=== PATIENT | male | born 1950 | race Hispanic/Latino ===

== ENCOUNTER 2018-09-01 08:16 | Day surgery (SDC) | payer OTHER ==
--- OUTSIDE RECORDS SUMMARY | 2018-09-01 08:21 | XMS REPORT ---
:1950 [facility] Address [address] [place] [address] Dr. Gordillo [address] [place] [id number] Care Team Providers Name Role Phone Unavailable Unavailable Unavailable Problems This patient has no known problems. Allergies, Adverse Reactions, Alerts This patient has no known allergies or adverse reactions. Medications This patient has no known medications.
[2018-09-01] MEDS ORDERED: CEFAZOLIN 1GM (PREMIX IV) 1 GM/50 ML BAG ONE (09:05)
[2018-09-01] MEDS ORDERED: Ringers Lactate 1,000 ML IV ONE (09:05)
[2018-09-01] MEDS ORDERED: PROPOFOL 200 MG/20 ML VIAL IV ONE (09:53)
[2018-09-01] MEDS ORDERED: ONDANSETRON 4 MG/2 ML VIAL ONE (09:54)
[2018-09-01] MEDS ORDERED: FENTANYL CITR 100 MCG/2 ML ONE (09:54)
[2018-09-01] MEDS ORDERED: MIDAZOLAM HCL 2 MG/2 ML INJ ONE (09:54)
[2018-09-01] MEDS ORDERED: LIDOCAINE 2% MPF 5 ML VIAL ONE (09:54)
[2018-09-01] MEDS ORDERED: ROCURONIUM 50 MG/5 ML VIAL IV ONE (09:56)
[2018-09-01] MEDS ORDERED: BUPIVACA 0.25%/EPI 0.0005% MDV 50 ML VIAL ONE (10:15)
[2018-09-01] MEDS ORDERED: EPHEDRINE SULF 50 MG/10 ML SYR ONE (10:34)
--- NOTE | 2018-09-01 12:10 | P.OP ---
Preoperative diagnosis: Recurrent Right Inguinal Hernia Postoperative diagnosis: Recurrent Right Inguinal Hernia Primary procedure: Open Repair of Recurrent Right Inguinal Hernia with Mesh Anesthesia: GETA + Local Estimated blood loss: <10cc Specimen: Hernia Sac Findings: Indirect hernia medial to cord structures, prior mesh pushed laterally Complications: None Implants: Large hernia plug and patch Transferred to: Recovery Room Condition: Good
[2018-09-01] MEDS ORDERED: GLYCOPYRROLATE 0.2 MG/ML SYR ONE (12:18)
[2018-09-01] MEDS: HYDROMORPHONE HCL 1 MG/ML INJ ONE ×4 (12:35→12:50)
[2018-09-01] MEDS ORDERED: HYDROCODONE/APAP 5/325 MG TAB ONE (17:26)
--- NOTE | 2018-09-01 23:31 | OP ---
Date of Procedure: 09/01/2018 Surgeon: Roverto Aguiar MD, Preoperative Diagnosis: Recurrent right inguinal hernia. Postoperative Diagnosis: Recurrent right inguinal hernia. Procedure Performed: Open repair of recurrent right inguinal hernia with plug and patch hernia repai r system. Anesthesia: General endotracheal plus local. Estimated Blood Loss: Less than 10 cc. Specimen: Hernia sac. Findings: There was an indirect hernia medial to the cord structures pushed, which had pushed the pr ior mesh laterally. Implants: A large Bard PerFix hernia plug and patch system. Complication: None. Disposition: Transferred to recovery room in good condition. Procedure In Detail: After informed consent was obtained, the patient was brought to the operating r oom, prepped and draped in the usual sterile fashion. After adequate anesthesia was achieved, an are a of the right groin was anesthetized with 0.25% Marcaine, sharply incised, and dissection was contin ued down through the subcutaneous tissues, through Camper fascia and Indigo fascia, to the level of t he spermatic cord and structures. This was encircled at this time and dissected down to its entirety . A hernia sac was noted to be emanating from the medial aspect. There was a hernia patch at this a kim. However, it appeared to be pushed laterally from its normal anatomic position. Dissection was continued circumferentially around this area, protecting all vital structures. After the spermatic c ord and structures were completely encircled with a Jean drain, I continued to dissect the hernia sac off the spermatic cord and structures. The testicle was distracted inferiorly to ensure there wa s minimal tension on the spermatic cord and structures. After the hernia sac was dissected free of t he spermatic cord structures, the sac was opened and inspected in its entirety. It was then ligated down to the level of the abdominal wall, and the large Bard PerFix hernia plug and patch system was b rought in, hydrated appropriately, and the patch was left on the back table and the plug system was b rought onto the field. This was secured in a parachute fashion into the medial aspect of the hernia defect with good approximation of the tissues, and it was secured using 4 interrupted 0 PDS sutures c ircumferentially around without pushing undue tension into this area with good approximation, and it was lying flat at this time. I then sized the large hernia patch system in a Bacilio tension-fr ee manner. I placed it over the hernia defect and under the spermatic cord and structures to reconst itute the deep ring. It was secured to the pubic tubercle on the medial aspect and on the shelving e dge of Luis and Poupart ligaments with small interrupted 2-0 PDS suture circumferentially around. The area was copiously irrigated multiple times until completely clean and dried out at this time. T he Camper fascia and Indigo fascia were closed en bloc over the top as the external oblique aponeuros is was found to be quite thin and friable and had very minimal strength to it. It was closed en bloc with the above-stated structures. After this was performed, the dermal layer was closed with interr upted 3-0 Vicryl sutures, and skin was closed with a 4-0 Monocryl in a running fashion. Dermabond wa s placed overtop. The patient tolerated the procedure well without evidence of complication and lehman sferred to the PACU in good condition. All counts were correct at the end of the case. TERRENCE/DYANA Voice ID: [id number] Report ID: [id number]
== END 2018-09-01 17:30 | disposition home or self-care (01) ==
LOC: OR 08:16
PROVIDERS: ATTEND Surgery
PROC: 0YU50JZ Supplement Right Inguinal Region with Synthetic Substitute, Open Approach (ICD-10-PCS; principal; 2018-09-01 09:30)
DX: K40.91 Unilateral inguinal hernia, without obstruction or gangrene, recurrent (principal); I10 Essential (primary) hypertension; E78.5 Hyperlipidemia, unspecified; K21.9 Gastro-esophageal reflux disease without esophagitis
CPT/HCPCS: 49520; 88302; J0690; J1170 ×2; J2250; J2405; J2704; J3010

== ENCOUNTER 2022-12-28 06:52 | Day surgery (SDC) | payer OTHER ==
[2022-12-28] MEDS ORDERED: NA CHLORIDE 0.9% 1,000 ML ONE (07:29)
[2022-12-28] MEDS ORDERED: propofoL 200 MG/20 ML VIAL IV ONE (08:23)
[2022-12-28] MEDS ORDERED: LIDOCAINE 1% MPF 5 ML VIAL ONE (08:23)
[2022-12-28 09:13] VITALS: TEMP 97.2
[2022-12-28 10:44] VITALS: BP 168/91; O2SAT 98
== END 2022-12-28 09:50 | disposition home or self-care (01) ==
LOC: PRE 06:52 → OR 09:50
PROVIDERS: ATTEND Surgery
PROC: 0DBK8ZX Excision of Ascending Colon, Via Natural or Artificial Opening Endoscopic, Diagnostic (ICD-10-PCS; principal; 2022-12-28 08:30)
DX: R93.3 Abnormal findings on diagnostic imaging of other parts of digestive tract (principal); K57.30 Diverticulosis of large intestine without perforation or abscess without bleeding; K64.4 Residual hemorrhoidal skin tags; K64.8 Other hemorrhoids; K63.5 Polyp of colon
CPT/HCPCS: 82947; 88305; 45384; J2704; J2001; J7030

== ENCOUNTER 2023-02-15 08:30 | Day surgery (SDC) | payer OTHER ==
[2023-02-12 13:53] LABS: Absolute Lymphocytes (CBC) 1.8 K/uL (0.7-4.9); Hematocrit 49.4 % (39.6-49.0); Lymphocytes % 21.3 % (15.3-44.8); MCV 88.1 fL (80-100); MPV 8.3 fL (7.6-11.3)
--- NOTE | 2023-02-12 13:53 | RAD REPORT ---
EXAM DESCRIPTION: Mindy Zavala And Bethanie (2 Views)02/12/2023 1:38 pm CLINICAL HISTORY: Preop for hernia repair COMPARISON: None FINDINGS: Lungs are moderately hyperaerated The lungs appear clear of acute infiltrate. The heart is normal size IMPRESSION: No acute abnormalities displayed
[2023-02-12 14:07] LABS: Potassium 4.2 mEq/L (3.5-5.1)
[2023-02-15] MEDS ORDERED: NA CHLORIDE 0.9% 1,000 ML ONE ×2 (09:05→13:11)
[2023-02-15] MEDS: CEFAZOLIN SODIUM 1 GM/VIAL ONE ×2 (09:38→10:46)
[2023-02-15] MEDS ORDERED: BUPIVACAINE 0.5% PF 10 ML VIAL ONE (09:52)
[2023-02-15] MEDS ORDERED: LIDOCAINE 2% MPF 5 ML VIAL ONE (10:00)
[2023-02-15] MEDS ORDERED: ROCURONIUM 50 MG/5 ML VIAL IV ONE (10:00)
[2023-02-15] MEDS ORDERED: dexAMETHasone 4 MG/ML VIAL ONE (10:00)
[2023-02-15] MEDS ORDERED: FENTANYL CITR 100 MCG/2 ML ONE ×2 (10:00→11:52)
[2023-02-15] MEDS ORDERED: propofoL 200 MG/20 ML VIAL IV ONE (10:00)
[2023-02-15] MEDS ORDERED: KETOROLAC 30 MG/ML INJ ONE (10:00)
[2023-02-15] MEDS ORDERED: ONDANSETRON 4 MG/2 ML VIAL ONE (10:00)
[2023-02-15] MEDS ORDERED: LABETALOL 20 MG/4ML SYRINGE IV ONE (11:43)
[2023-02-15] MEDS ORDERED: BUPIVACAINE 0.25% PF 10 ML VIAL ONE (11:52)
[2023-02-15] MEDS ORDERED: dexAMETHasone 10 MG/ML VIAL ONE (11:52)
[2023-02-15] MEDS ORDERED: EPINEPHRINE 1 MG/ML VIAL ONE (11:52)
[2023-02-15] MEDS ORDERED: VECURONIUM 10 MG/VIAL IV ONE (11:53)
[2023-02-15] MEDS ORDERED: NS 0.9% VIAL 20 ML ONE (11:53)
[2023-02-15] MEDS ORDERED: SUGAMMADEX SODIUM 200 MG/2 ML VIAL IV ONE (13:24)
--- NOTE | 2023-02-15 13:30 | P.BOP ---
Preoperative diagnosis: recurrent incarcerated tender right inguinal hernia Postoperative diagnosis: same Primary procedure: Diagnostic laparoscopy Secondary procedure: Laparoscopic extensive lysis of adhesions, removal of two mesh plugs Other procedure(s): Open repair of recurrent incarcerated tender right inguinal hernia Estimated blood loss: <20cc Specimen: mesh, hernia sac Findings: see dicta Anesthesia: General Complications: None Implants: none Condition: Good
[2023-02-15] MEDS ORDERED: HYDROCODONE/APAP 5/325 MG TAB PO PRN (13:43)
[2023-02-15 14:29] VITALS: BP 153/80; TEMP 98; O2SAT 93
[2023-02-15] MEDS ORDERED: HYDROCODONE/APAP 5/325 MG TAB ONE (14:51)
== END 2023-02-15 16:00 | disposition home or self-care (01) ==
LOC: OR 08:30
PROVIDERS: ATTEND Surgery
PROC: 0YU50JZ Supplement Right Inguinal Region with Synthetic Substitute, Open Approach (ICD-10-PCS; principal; 2023-02-15 11:30)
PROC: 0DNW4ZZ Release Peritoneum, Percutaneous Endoscopic Approach (ICD-10-PCS; 2023-02-15 11:30)
DX: K40.31 Unilateral inguinal hernia, with obstruction, without gangrene, recurrent (principal); K66.0 Peritoneal adhesions (postprocedural) (postinfection)
CPT/HCPCS: 49521; 85025; 80048; 36415; 82947 ×2; 88300; 88302; 71046; 49329; A4216; J2704; J1100 ×2; J2001; J3010 ×2; J0171; J2405; J7030 ×2; J0690